=== PATIENT | male | born 1960 | race Caucasian/White ===

== ENCOUNTER 2017-11-13 19:57 | Emergency (ER) | payer OTHER, MEDICAID ==
[~2017-11-13] VITALS: Ht 142.2 cm; Wt 52.7 kg
--- NOTE | 2017-11-13 20:00 | NUR ---
Cristian fernandez in ED - 11/13/17 at 2027 by BASHIR PATIENT LEFT WITHOUT BEING SEEN BY DR. BRADY. NO FURTHER CARE PROVIDED FOR PATIENT.
[2017-11-13 20:10] VITALS: BP 124/81
--- NOTE | 2017-11-13 20:15 | NUR ---
PATIENT BIB WHEELCHAIR TO ER BED 1.
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
[2017-11-13 21:12] VITALS: BP 129/73
--- NOTE | 2017-11-13 21:12 | NUR ---
Patient discharged with v/s stable. Written and verbal after care instructions given and explained. Patient verbalized understanding. Wheel Chair Assisted with by caregiver. All questions addressed prior to discharge. Advised to follow up with PMD.
== END 2017-11-13 21:12 | disposition home or self-care (01) ==
LOC: MED 19:57
DX: S01.01XA Laceration without foreign body of scalp, initial encounter (principal); I10 Essential (primary) hypertension; Q90.9 Down syndrome, unspecified; E11.9 Type 2 diabetes mellitus without complications; K21.9 Gastro-esophageal reflux disease without esophagitis; F03.90 Unspecified dementia, unspecified severity, without behavioral disturbance, psychotic disturbance, mood disturbance, and anxiety; E78.5 Hyperlipidemia, unspecified; M19.90 Unspecified osteoarthritis, unspecified site; Z88.8 Allergy status to other drugs, medicaments and biological substances; W22.03XA Walked into furniture, initial encounter; Y93.89 Activity, other specified; Y92.89 Other specified places as the place of occurrence of the external cause; Y99.8 Other external cause status
CPT/HCPCS: 12001; 99283

== ENCOUNTER 2018-07-02 22:39 | Emergency (ER) | payer OTHER, MEDICAID ==
[~2018-07-02] VITALS: Ht 147.3 cm; Wt 59.0 kg
[2018-07-02 22:40] VITALS: BP 112/85
[2018-07-03 01:23] VITALS: BP 112/85
== END 2018-07-03 01:23 | disposition home or self-care (01) ==
LOC: MED 22:39
DX: M17.11 Unilateral primary osteoarthritis, right knee (principal); E11.9 Type 2 diabetes mellitus without complications; F03.90 Unspecified dementia, unspecified severity, without behavioral disturbance, psychotic disturbance, mood disturbance, and anxiety; K21.9 Gastro-esophageal reflux disease without esophagitis; I10 Essential (primary) hypertension; Q90.9 Down syndrome, unspecified; Z88.8 Allergy status to other drugs, medicaments and biological substances
CPT/HCPCS: 73562; 73590; 93971; 99284; Q0092

== ENCOUNTER 2019-08-22 10:03 | Emergency (ER) | payer OTHER, MEDICAID ==
[~2019-08-22] VITALS: Ht 144.8 cm; Wt 42.6 kg
[2019-08-22 10:17] VITALS: BP 106/60
[2019-08-22 12:06] VITALS: BP 106/60
== END 2019-08-22 12:06 | disposition home or self-care (01) ==
LOC: MED 10:03
DX: J18.9 Pneumonia, unspecified organism (principal); E11.9 Type 2 diabetes mellitus without complications; F03.90 Unspecified dementia, unspecified severity, without behavioral disturbance, psychotic disturbance, mood disturbance, and anxiety; K21.9 Gastro-esophageal reflux disease without esophagitis; I10 Essential (primary) hypertension; E07.9 Disorder of thyroid, unspecified
CPT/HCPCS: 71045; 87804; 99284; Q0092

== ENCOUNTER 2020-01-15 15:47 | Emergency (ER) | payer OTHER, MEDICAID ==
[~2020-01-15] VITALS: Ht 129.5 cm; Wt 47.6 kg
[2020-01-15 15:50] VITALS: BP 114/60
--- NOTE | 2020-01-15 16:00 | NUR ---
PT WHEELCHAIR ASSISTED TO BED 06
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
--- NOTE | 2020-01-15 16:20 | NUR ---
DR LOYOLA AT BEDSIDE EXAMINING PT
--- NOTE | 2020-01-15 16:37 | NUR ---
LACERATION CLOSED USING DERMABOND PLACED TO RT EYEBROW BY DR LOYOLA. PT TOLERATED WELL
[2020-01-15 16:43] VITALS: BP 114/60
--- NOTE | 2020-01-15 16:44 | NUR ---
Patient discharged with v/s stable. Written and verbal after care instructions given and explained. Patient verbalized understanding. Wheel Chair Assisted with to car. All questions addressed prior to discharge. Advised to follow up with PMD.
== END 2020-01-15 16:44 | disposition home or self-care (01) ==
LOC: MED 15:47
DX: S01.111A Laceration without foreign body of right eyelid and periocular area, initial encounter (principal); E11.9 Type 2 diabetes mellitus without complications; E07.89 Other specified disorders of thyroid; F79 Unspecified intellectual disabilities; F03.90 Unspecified dementia, unspecified severity, without behavioral disturbance, psychotic disturbance, mood disturbance, and anxiety; I10 Essential (primary) hypertension; K21.9 Gastro-esophageal reflux disease without esophagitis; W01.198A Fall on same level from slipping, tripping and stumbling with subsequent striking against other object, initial encounter; Y93.89 Activity, other specified; Y92.091 Bathroom in other non-institutional residence as the place of occurrence of the external cause; Y99.8 Other external cause status
CPT/HCPCS: 99282

== ENCOUNTER 2021-02-06 07:31 | Inpatient (IN) | payer OTHER, MEDICAID, SELFPAY ==
[~2021-02-06] VITALS: Ht 144.8 cm; Wt 53.1 kg
--- NOTE | 2021-02-06 07:32 | NUR ---
pt BIBA to bed 10 via gurney. ERMD at bedside evaluating pt.
--- NOTE | 2021-02-06 07:34 | NUR ---
Per Dr. Bowen at pt bedside ordered 0.4mg Narcan stat IVP. Given in left hand 20G. 2L NC applied per Md order.
[2021-02-06] MEDS ORDERED: NALOXONE 0.4 MG/ML VIAL ONE (07:35)
[2021-02-06 07:39] VITALS: BP 114/64
--- NOTE | 2021-02-06 07:46 | NUR ---
RT AT BEDSIDE
--- NOTE | 2021-02-06 08:13 | NUR ---
pt taken to ct via nadiya
--- NOTE | 2021-02-06 08:18 | NUR ---
60 Y/O M DAPHNE FROM [facility], PT THIS MORNING WAS HAVING C/O SOB, ALOC, SHALLOW RESPIRATIONS AND 02 DESTAT WITH 78% ON RA. PT WAS PUT ON NON REBREATHER @10L, NOW STAT AT 100%. PT NORMAL BASELINE, RESPONDS TO SPEECH AND PAIN, NON VERBAL. PT AT THIS TIME NOT RESPONSIVE TO PAINFUL STIMULI OR SPEECH. ACCU CHECK: 115. PMH: DOWN SYNDROME, HYPERTHYROID, DM ALLERGY: KENYON INHIBITORS
[2021-02-06 08:19] LABS: ALBUMIN 3.3 g/dL (3.4-5.0); ANION GAP 21.7 (8-16); CARBON DIOXIDE 21.8 mmol/L (21-32); CREATININE 2.3 mg/dL (0.6-1.3); POTASSIUM 4.5 mmol/L (3.5-5.1); TOTAL BILIRUBIN 0.2 mg/dL (0.0-1.0)
[2021-02-06 08:25] LABS: LIPASE 128 U/L (73-393)
[2021-02-06 08:41] LABS: BILIRUBIN,URINE NEGATIVE (NEGATIVE); BLOOD, URINE TRACE-I (NEGATIVE); COLOR,URINE YELLOW (YELLOW); NITRITE, URINE NEGATIVE (NEGATIVE); UGLUCOSE NEGATIVE (NEGATIVE)
[2021-02-06] MEDS ORDERED: PIPERACILLIN/TAZOBACTAM 3.375 GM in DEXTROSE 5% 50 ML IV ONE (09:00)
[2021-02-06] MEDS ORDERED: VANCOMYCIN PER PHARMACY MC PRN ×2 (09:00→22:10)
[2021-02-06] MEDS ORDERED: VANCOMYCIN 1GM/DEXT 5% PREMIX 200 ML IV ONE (09:00)
[2021-02-06] MEDS ORDERED: NACL 0.9% 1,000 ML IV ONE ×2 (09:00)
[2021-02-06] MEDS ORDERED: PIPERACILLIN/TAZOBACTAM 3.375 GM VIAL IV ONE (09:08)
[2021-02-06 09:10] LABS: LEUKOCYTE ESTERASE ,URINE 1+ (NEGATIVE); RBC,URINE 0-5 /HPF (0-5)
--- NOTE | 2021-02-06 09:10 | NUR ---
SPOKE WITH FRANCES CID FROM FACILITY AND GAVE UPDATE ON PT STATUS
[2021-02-06 09:12] LABS: APPEARANCE,URINE SLIGHTLY HAZY (CLEAR); URINE AMORPHOUS URATE 1+ /HPF (None Seen)
[2021-02-06] MEDS ORDERED: VANCOMYCIN 1,000 MG VIAL ONE (09:13)
[2021-02-06 09:15] LABS: BARBITURATE, URINE NEGATIVE ng/ml (NEG <=200); BENZODIAZEPINE, URINE NEGATIVE ng/mL (NEG <=200); CANNABINOID, URINE NEGATIVE ng/mL (NEG <=50); COCAINE, URINE NEGATIVE ng/mL (NEG <=300); OPIATE, URINE NEGATIVE ng/mL (NEG <=2000); PHENCYCLIDINE SCREEN,URINE NEGATIVE ng/mL (NEG <=25)
--- NOTE | 2021-02-06 09:32 | NUR ---
MADE AWARE OF PETECHIAE APPERARING ON PT HEAD, CHEST, AND LE. DR. ESPARZA BEDSIDE WITH DR. SCHNEIDER.
[2021-02-06] MEDS ORDERED: ONDANSETRON 4 MG/2 ML VIAL IVP PRN ×2 (09:35→21:50)
[2021-02-06] MEDS ORDERED: LORazepam 2 MG/ML VIAL IVP PRN (09:35)
--- NOTE | 2021-02-06 09:47 | NUR ---
KEN HAZMAT TRUCK DRIVER FROM FACILITY STOPPED BY TO CHECK ON PATIENT. WENT BEDSIDE WITH KEN AND PROVIDED UPDATE ON PATIENT. KEN IS GOING TO CONTACT FACILITY AND HAVE MEDICATION RECORDS FAXED OVER TO HOSPITAL ED
[2021-02-06] MEDS ORDERED: KETAMINE 10 MG/ML UD SYR **ER IVP ONE (10:00)
[2021-02-06] MEDS: DEXT 5% / NACL 0.45% 1,000 ML IV SCH ×3 (10:15→21:50)
--- NOTE | 2021-02-06 10:17 | NUR ---
Per Ami, we need to call addiction social worker to obtain consent for conscious sedation for spinal tap. Called pt sister Donna [phone] for verbal consent. Per Donna wanting to give consent only after speaking with Dr. Bowen regarding pt updates and care.
[2021-02-06] MEDS ORDERED: cefTRIAXone 2,000 MG in DEXTROSE 5% 100 ML IV ONE (10:30)
--- NOTE | 2021-02-06 10:38 | NUR ---
CONSTENT FOR LUMBAR PUNTURE AND CONCIOUS SEDATION OBTAINED OVER PHONE FROM SISTER ED. MADE AWARE AND SIGNED CONSENT FORM
[2021-02-06] MEDS ORDERED: cefTRIAXone 2,000 MG VIAL ONE (10:48)
--- NOTE | 2021-02-06 11:04 | NUR ---
STARTED CONSIOUS SEDATION FOR MD. RN BEDSIDE MONITORING PATIENT. VS STABLE. MEDICATION CHARTED
--- NOTE | 2021-02-06 11:05 | NUR ---
WAS AT BEDSIDE FOR CONS SEDATION FOR PROCEDURE WITH MD AND RNS. PATIENT MAINTAINED SATURATIONS AND END TIDAL WAS MAINTAINED THROUGHOUT PROCEDURE. PATIENT DID WELL AND DIDNT NEED ANY FURTHER INTERVENTIONS BY RT. BVM AND SET UP WERE PLACED AT BEDSIDE IN CASE NEEDED WHICH WAS NOT. PATIENT STAYED ON 2 LITERS THROUGHOUT PROCEDURE BY MD.
[2021-02-06 11:27] LABS: PROTHROMBIN TIME 10.7 secs (10.8-13.4)
[2021-02-06] MEDS ORDERED: AMPICILLIN 2,000 MG in NACL 0.9% 100 ML IV ONE (11:40)
--- NOTE | 2021-02-06 12:00 | NUR ---
GISELA DAUGHERTY, FROM PATIENT FACILITY BEDSIDE WITH PATIENT. PATIENT CURRENTLY RESTING IN BED. VITALS STABLE. WILL CONTUINE TO MONITOR
[2021-02-06 12:58] LABS: BASOPHILS % (AUTO) 0.6 % (0.0-2.0); EOSINOPHILS # (AUTO) 0.1 K/uL (0-0.4); EOSINOPHILS % (AUTO) 1.6 % (0.0-4.0); HEMATOCRIT 40.2 % (36-52); HEMOGLOBIN 13.1 g/dL (12.0-18.0); LYMPHOCYTES # (AUTO) 2.7 K/uL (2.0-11.5); LYMPHOCYTES % (AUTO) 36.1 % (20.5-51.1); MEAN CORPUSCULAR HEMOGLOBIN 33 pg (27-31); MEAN CORPUSCULAR HGB CONC 33 g/dL (33-37); MONOCYTES # (AUTO) 0.5 K/uL (0.8-1.0); MONOCYTES % (AUTO) 6.3 % (1.7-9.3); NEUTROPHILS # (AUTO) 4.1 K/uL (1.8-7.7); NEUTROPHILS % (AUTO) 55.4 % (42.2-75.2); PLATELET COUNT (AUTO) 283 K/uL (140-450); RED BLOOD CELL COUNT(AUTO) 3.94 MIL/uL (4.20-6.10); RED CELL DISTRIBUTION WIDTH 15.2 % (11.6-13.7); WHITE BLOOD COUNT (AUTO) 7.5 K/uL (4.8-10.8)
--- NOTE | 2021-02-06 13:19 | NUR ---
PT CURRENTLY ASLEEP IN BED. VS STABLE AND WILL CONTUINE TO MONITOR
--- NOTE | 2021-02-06 14:15 | NUR ---
CHECKED ON PT. GUICHO DAUGHERTY FROM FACILITY BEDSIDE WITH PT. PATIENT STABLE, WILL CONTUINE TO MONITOR
--- NOTE | 2021-02-06 14:45 | NUR ---
CHECKED ON PT. PT CURRENTLY SLEEPING IN BED RIGHT NOW. VITALS STABLE, WILL CONTUINE TO MONITOR
--- NOTE | 2021-02-06 14:52 | NUR ---
PT GOES BY JIMMY
--- NOTE | 2021-02-06 16:15 | NUR ---
PT ARRIVED FROM ER IN [facility], PT TRANSFERRED TO BED WITH FULL ASSIST, REPORT RECEIVED FROM DIRECTOR OF QUANTITATIVE RESEARCH, PT PLACED ON CARDIAC MONTIOR, INITIAL ASSESSMENT DONE, MRSA SWAB DONE, PT DROWSY AROUSES TO LIGHT PAIN, RESP EVEN UNLABORED ON 2L NC O2, SKIN WARM DRY COLOR WNL, CAP REFILL < 3 SECONDS, PETECHIEAL RASH NOTED TO FACE AND CHEST, OTHERWISE INTACT, IV TO R AC AND LEFT FA, SITES WNL, ABD SOFT NON DISTENDED, FALL RISK PRECAUTIONS INITIATED, ALL SAFETY MEASURES IN PLACE, ORDERS AND PLAN OF CARE REVIEWED
[2021-02-06 16:30] VITALS: BP 143/88
--- NOTE | 2021-02-06 16:37 | NUR ---
Patient will be admitted to care of DR SÁNCHEZ ESPARZA. Admited to TELE. Will go to room 121A. Belongings list completed. Report to WILLOW GRANDE.
--- NOTE | 2021-02-06 16:57 | NUR ---
PHONE CALL MADE TO SISTER ED, NOTIFIED OF ADMISSION. ADMISSION QUESTIONS OBTAINED.
--- NOTE | 2021-02-06 17:12 | NUR ---
MRSA SWAB WALKED TO LAB
[2021-02-06] MEDS: PIPERACILLIN/TAZOBACTAM 2.25 GM in DEXTROSE 5% 50 ML IV SCH (18:03)
--- NOTE | 2021-02-06 18:16 | NUR ---
ROCEPHIN STARTED IVPB PER ORDER, PT SLEEPING IN NO ACUTE DISTRESS
[2021-02-06] MEDS ORDERED: OMEP20EC11 PO (18:49)
[2021-02-06] MEDS ORDERED: MELA5SGL PO (18:49)
[2021-02-06] MEDS ORDERED: DONE10TA10 PO (18:49)
[2021-02-06] MEDS ORDERED: SYN.05 PO (18:49)
[2021-02-06] MEDS ORDERED: DIT5 PO (18:49)
[2021-02-06] MEDS ORDERED: METF500T PO (18:49)
[2021-02-06] MEDS ORDERED: SIMV-30 PO (18:49)
[2021-02-06] MEDS ORDERED: FER300L GT/PO (18:49)
[2021-02-06] MEDS ORDERED: QUET100T PO (18:49)
[2021-02-06] MEDS ORDERED: METO-485 PO (18:49)
[2021-02-06] MEDS ORDERED: MAGN400S60 PO (18:50)
[2021-02-06] MEDS ORDERED: INSULIN LISPRO SLIDING SCALE 100 UNITS/ML VIAL SUBQ PRN (18:55)
[2021-02-06] MEDS ORDERED: DEXTROSE 50% 50 ML SYR IVP PRN (18:55)
--- NOTE | 2021-02-06 18:59 | NUR ---
BEDSIDE GLUCOSE 115
[2021-02-06] MEDS: BLOOD GLUCOSE MONITORING 1 DEV DEV FS SCH (19:00)
--- NOTE | 2021-02-06 19:27 | NUR ---
DR LUNA AT BEDSIDE.
--- NOTE | 2021-02-06 19:28 | NUR ---
BEDSIDE REPORT GIVEN TO MACHINE ADJUSTER NURSE GAGE.
--- NOTE | 2021-02-06 19:30 | NUR ---
RECEIVED REPORT FROM HARJINDER RN DAYSHIFT NURSE AT BEDSIDE FOR CONTINUITY OF CARE, PT IN STABLE CONDITION. PT IS AOX1 HE IS LETHARGIC BUT AROUSABLE TO NAME AND LIGHT SHAKING. PT OPEN EYES SPONTANEOUSLY. HOB UP 35%. SKIN IS INTACT,HOWEVER PT NOTED WITH PETECHIA RASH ON FACE AND CHEST .HE HAS A LFA 20G RUNNING D5 1/2 NORMAL SALINE AT 100 AND A RAC 20G WHICH IS SALINE LOCKED. PT IS NPO SWALLOW EVALUATION IS PENDING. ALL FALLS PRECAUTIONS IN PLACE.
[2021-02-06 20:00] VITALS: BP 146/78
--- NOTE | 2021-02-06 20:00 | NUR ---
PT IN BED RESTING WITH EYES CLOSED, HE IS AROUSABLE WITH LIGHT SHAKING. IV FLUIDS OF D5 1/2 NS CONTINUES TO RUN AT 100MLS/HR. V/S FOLLOWS: T 97.1 P 68 R 18 B/P 166/78 02 100% WITH 2 LITERS VIA N/C. ALL FALLS PRECAUTIONS IN PLACE. Addendum: 02/07/21 at 0145 by Faustina Flores RN SBP IS 146 NOT 166
[2021-02-06] MEDS ORDERED: PIPERACILLIN/TAZOBACTAM 3.375 GM in DEXTROSE 5% 50 ML IV SCH (21:00)
--- NOTE | 2021-02-06 21:00 | NUR ---
PT WAS TURNED, CHANGED AND REPOSITIONED IN BED. D5 1/2 NS RUNNING AT 100MLS/HR ORDERED. ALL FALLS PRECAUTIONS IN PLACE.
--- NOTE | 2021-02-06 22:30 | NUR ---
14 SPANISH GUILLORY CATHETER PLACED, DRAINING LIGHT CHERYL URINE. PT IS STRICT I AND O. IV FLUIDS RUNNING ORDERED. HOB UP 35% N/C IN PLACE AND CONTINUES AT 2 LITERS. ALL ORDERED PRECAUTIONS IN PLACE.
[2021-02-07] VITALS: BP 149/79
--- NOTE | 2021-02-07 00:10 | NUR ---
PT WAS TURNED AND REPOSITIONED IN BED N/C CONTINUES AT 2 LITERS, IV SITES INTACT AND D5 1/2 NORMAL SALINE RUNNING AT 100MLS/HR ORDERED. V/S FOLLOWS: T 97.1 P 53 R 16 B/P 149/79 02 99% WITH 2 LITERS VIA N/C. ALL FALLS PRECAUTIONS IN PLACE.
[2021-02-07] MEDS: BLOOD GLUCOSE MONITORING 1 DEV DEV FS SCH ×5 (00:59→23:23)
[2021-02-07] MEDS: PIPERACILLIN/TAZOBACTAM 2.25 GM in DEXTROSE 5% 50 ML IV SCH ×5 (01:00→23:23)
[2021-02-07 04:00] VITALS: BP 159/93
--- NOTE | 2021-02-07 04:00 | NUR ---
PT TURNED AND REPOSITIONED IN BED. GUILLORY CATHETER IN PLACE DRAINING BLOOD TINGED URINE. PT HS NO S/S OF PAIN OR DISTRESS NOTED. IV FLUID RUNNING D5 1/2 NS ORDERED. ALL FALLS AND ASPIRATION PRECAUTIONS IN PLACE.
--- NOTE | 2021-02-07 06:00 | NUR ---
FINGERSTICK IS 129, NO COVERAGE NEEDED.
[2021-02-07] MEDS: DEXT 5% / NACL 0.45% 1,000 ML IV SCH ×2 (06:44→17:44)
[2021-02-07 07:00] LABS: BASOPHILS # (AUTO) 0.1 K/uL (0.00-0.22); BASOPHILS % (AUTO) 0.6 % (0.0-2.0); EOSINOPHILS # (AUTO) 0.1 K/uL (0-0.4); EOSINOPHILS % (AUTO) 1.4 % (0.0-4.0); HEMATOCRIT 38.2 % (36-52); HEMOGLOBIN 12.9 g/dL (12.0-18.0); LYMPHOCYTES # (AUTO) 1.8 K/uL (2.0-11.5); LYMPHOCYTES % (AUTO) 21.4 % (20.5-51.1); MEAN CORPUSCULAR HEMOGLOBIN 33 pg (27-31); MEAN CORPUSCULAR HGB CONC 34 g/dL (33-37); MEAN CORPUSCULAR VOLUME 98.5 fL (80-94); MONOCYTES # (AUTO) 0.5 K/uL (0.8-1.0); MONOCYTES % (AUTO) 5.7 % (1.7-9.3); NEUTROPHILS # (AUTO) 5.9 K/uL (1.8-7.7); NEUTROPHILS % (AUTO) 70.9 % (42.2-75.2); PLATELET COUNT (AUTO) 246 K/uL (140-450); RED BLOOD CELL COUNT(AUTO) 3.87 MIL/uL (4.20-6.10); RED CELL DISTRIBUTION WIDTH 14.9 % (11.6-13.7); WHITE BLOOD COUNT (AUTO) 8.4 K/uL (4.8-10.8)
--- NOTE | 2021-02-07 07:09 | NUR ---
PATIENT HAS BEEN SCREENED AND CATEGORIZED HIGH NUTRITION RISK. PATIENT WILL BE SEEN WITHIN 1-2 DAYS OF ADMISSION. 02/07/21-02/08/21 TRACI SAHU MS, RDN
[2021-02-07 07:12] LABS: ANION GAP 12.5 (8-16); CARBON DIOXIDE 24.4 mmol/L (21-32); CREATININE 1.7 mg/dL (0.6-1.3); POTASSIUM 3.9 mmol/L (3.5-5.1)
--- NOTE | 2021-02-07 07:25 | NUR ---
PATIENT RECEIVED FROM QA CONSULTANT RN. PT RESTING IN BED. NO S/SX OF DISTRESS. CALL LIGHT WITHIN REACH NO SAFETY MEASURES ARE IN PLACE. Addendum: 02/07/21 at 0756 by Jennifer Cerrato RN RN WRONG PT.
--- NOTE | 2021-02-07 07:30 | NUR ---
RECEIVED REPORT FROM LAND ACQUISITION ANALYST NURSE. PT IN BED HOB ELEVATED, AOX1, DROWSY, AROUSABLE TO NAME AND LIGHT SHAKING. OPENS EYES SPONTANEOUSLY AND TRACKS. SKIN IS INTACT, WITH PETECHIA RASH ON FACE AND CHEST. WITH LFA 20G RUNNING D5 1/2 NORMAL SALINE AT 100CC/HR AND A RAC 20G .SALINE LOCKED. NPO AT THIS TIME WITH SWALLOW EVALUATION PENDING. SAFETY AND FALLS PRECAUTIONS IN PLACE. CALL LIGHT WITHIN REACH. WILL CONTINUE TO MONITOR
[2021-02-07 07:37] LABS: MAGNESIUM 1.8 mg/dL (1.8-2.4); PHOSPHORUS 3.4 mg/dL (2.5-4.9)
[2021-02-07 08:00] VITALS: BP 150/71
[2021-02-07 09:06] LABS: LACTATE DEHYDROGENASE 170 IU/L (121-224)
--- NOTE | 2021-02-07 09:47 | NUR ---
(02/07/21) RD INITIAL ASSESSMENT COMPLETED PLEASE REFER TO NUTRITION ASSESSMENT UNDER CARE ACTIVITY FOR ESTIMATED NUTRITIONAL NEEDS. RD RECOMMENDATIONS: IF PT PASSES SWALLOW EVAL, CONSIDER CCHO 60 GM DIET IN CONSISTENCY/TEXTURES PER COMPOSITE LAMINATOR RECOMMENDATIONS. IF PT DOES NOT PASS SWALLOW EVAL, CONSIDER TF: VITAL AF AT 60 ML/HR X 24 HOURS. THIS PROVIDES 1440 ML TOTAL VOLUME, 1728 KCAL, 108 GM PROTEIN, 1168 ML TOTAL FREE WATER & FWF OF 180 ML Q6H TO PROVIDE 720 ML FREE WATER. WHICH MEETS 91% EST KCAL NEEDS AND >100% EST PROTEIN NEEDS. 2. CONSULT RDN PRN. 3. RD WILL F/U 2-3 DAYS; HIGH RISK. ?TRACI SAHU, MS, RDN
[2021-02-07] MEDS ORDERED: VANCOMYCIN 1,000 MG in DEXTROSE 5% 250 ML IV SCH (10:00)
[2021-02-07] MEDS: PANTOPRAZOLE 40 MG INJ VIAL IVP SCH (10:21)
--- NOTE | 2021-02-07 11:10 | NUR ---
PT ASLEEP IN BED WITH SISTER AT BEDSIDE. NO APPARENT DISTRESS
[2021-02-07 12:00] VITALS: BP 143/67
--- NOTE | 2021-02-07 13:00 | NUR ---
PT AWAKE IN BED. NO APPARENT DISTRESS, FLACC 0, WITH EPISODES OF SCREAMING, WOULD STOP WHEN COMFORTED
--- NOTE | 2021-02-07 15:00 | NUR ---
PT ASLEEP IN BED. NO APPARENT DISTRESS, FLACC 0
[2021-02-07 16:00] VITALS: BP 117/73
--- NOTE | 2021-02-07 17:00 | NUR ---
BEDSIDE SWALLOW EVAL DONE. PT ABLE TO SWALLOW APPLE SAUCE WIT DIFFICULTY SWALLOWING THIN LIQUIDS. DR MENDOZA NOTIFIED. PRDERED PUREE WITH THICKENED LIQUIDS
[2021-02-07] MEDS: NACL 0.9% 1,000 ML IV SCH (19:03)
--- NOTE | 2021-02-07 19:35 | NUR ---
RECIEVED BEDSIDE ENDORSMENT FROM DAY SHIFT RN, PT A&OX1, REACTS TO VOICE AND TOUCH, SR ON MONITOR, ON ROOM AIR, VSS, RAC 20 G PIV SALINE LOCKED, LFA 20 G PIV INFUSING NS @ 50 MLS/HR, ABD SOFT AND NON TENDER TO TOUCH, FC IN PLACE DRAINING VIA GRAVITY, SKIN WARM DRY AND INTACT, NO SIGNS OF ACUTE DISTRESS, SAFETY MEASURES IN PLACE, WILL CONTINUE WITH CURRENT POC
[2021-02-07 20:00] VITALS: BP 124/84
--- NOTE | 2021-02-07 20:45 | NUR ---
ADMINISTERED 2100H MEDICATIONS PER MD ORDERS
--- NOTE | 2021-02-07 23:24 | NUR ---
ADMINISTERED 0000H MEDICATION PER MD ORDERS, BLOOD GLUCOSE 111
[2021-02-08] VITALS: BP 131/69
[2021-02-08] MEDS: LORazepam 2 MG/ML VIAL IVP PRN ×2 (01:08→22:41)
--- NOTE | 2021-02-08 02:48 | NUR ---
PT SLEEPING COMFORTABLY W/ NO DISTRESS NOTED WILL CONTINUE TO MONITOR
[2021-02-08 04:00] VITALS: BP 142/77
[2021-02-08] MEDS: PIPERACILLIN/TAZOBACTAM 2.25 GM in DEXTROSE 5% 50 ML IV SCH ×4 (05:03→23:07)
[2021-02-08] MEDS: BLOOD GLUCOSE MONITORING 1 DEV DEV FS SCH ×4 (05:09→23:07)
--- NOTE | 2021-02-08 05:09 | NUR ---
ADMINISTERED 0600H MEDICATION PER MD ORDERS, BLOOD GLUCOSE 128
[2021-02-08 06:40] LABS: BASOPHILS # (AUTO) 0.1 K/uL (0.00-0.22); EOSINOPHILS # (AUTO) 0.2 K/uL (0-0.4); EOSINOPHILS % (AUTO) 2.3 % (0.0-4.0); HEMATOCRIT 39.7 % (36-52); HEMOGLOBIN 13.2 g/dL (12.0-18.0); LYMPHOCYTES # (AUTO) 1.6 K/uL (2.0-11.5); LYMPHOCYTES % (AUTO) 23.6 % (20.5-51.1); MEAN CORPUSCULAR HEMOGLOBIN 33 pg (27-31); MEAN CORPUSCULAR HGB CONC 33 g/dL (33-37); MEAN CORPUSCULAR VOLUME 99.3 fL (80-94); MONOCYTES # (AUTO) 0.5 K/uL (0.8-1.0); MONOCYTES % (AUTO) 7.1 % (1.7-9.3); NEUTROPHILS # (AUTO) 4.4 K/uL (1.8-7.7); PLATELET COUNT (AUTO) 244 K/uL (140-450); RED CELL DISTRIBUTION WIDTH 14.8 % (11.6-13.7); WHITE BLOOD COUNT (AUTO) 6.7 K/uL (4.8-10.8)
[2021-02-08 07:10] LABS: ANION GAP 11.5 (8-16); CREATININE 1.8 mg/dL (0.6-1.3); POTASSIUM 3.5 mmol/L (3.5-5.1)
--- NOTE | 2021-02-08 07:20 | NUR ---
ENDORSED TO DAY SHIFT RN FOR CONTINUIYT OF CARE
--- NOTE | 2021-02-08 07:21 | NUR ---
RECEIVED REPORT FROM DINING ROOM ATTENDANT NURSE. PT IN BED HOB ELEVATED, AOX1, ASLEEP, AROUSABLE TO NAME AND LIGHT SHAKING. OPENS EYES SPONTANEOUSLY AND TRACKS. SKIN IS INTACT, WITH PETECHIA RASH ON FACE AND CHEST. WITH LFA 20G RUNNING NORMAL SALINE AT 50CC/HR AND A RAC 20G SALINE LOCKED. ON PUREE DIET WITH SWALLOW EVALUATION PENDING. SAFETY AND FALLS PRECAUTIONS IN PLACE. CALL LIGHT WITHIN REACH. WILL CONTINUE TO MONITOR
[2021-02-08 08:00] VITALS: BP 158/80
--- NOTE | 2021-02-08 08:50 | NUR ---
DUE MEDS GIVEN
[2021-02-08] MEDS: PANTOPRAZOLE 40 MG INJ VIAL IVP SCH (08:54)
--- NOTE | 2021-02-08 09:15 | NUR ---
PT RESTING IN BED. NO APPARENT DISTRESS, FLACC 0
--- NOTE | 2021-02-08 11:30 | NUR ---
PT AWAKE IN BED. NO APPARENT DISTRESS, FLACC 0, WITH EPISODES OF SCREAMING, WOULD STOP WHEN COMFORTED
[2021-02-08 12:00] VITALS: BP 138/89
--- NOTE | 2021-02-08 13:00 | NUR ---
FED PT LUNCH. TOLERATED PUREE DIET WELL, ATE 50%
[2021-02-08] MEDS: NACL 0.9% 1,000 ML IV SCH (14:41)
[2021-02-08 16:00] VITALS: BP 98/86
[2021-02-08] MEDS ORDERED: VANCOMYCIN 1,000 MG in DEXTROSE 5% 250 ML IV SCH (16:00)
--- NOTE | 2021-02-08 16:18 | NUR ---
PT AWAKE IN BED. NO APPARENT DISTRESS, FLACC 0, NO SOB
--- NOTE | 2021-02-08 18:39 | NUR ---
PT AWAKE IN BED. NO APPARENT DISTRESS, RESPIRATIONS ARE EVEN AND UNLABORED
--- NOTE | 2021-02-08 19:20 | NUR ---
RECIEVED BEDSIDE ENDORSMENT FROM DAY SHIFT RN, PT A&OX1, REACTS TO VOICE AND TOUCH, SR ON MONITOR, ON ROOM AIR, VSS, RAC 20 G PIV INFUSING NS @ 50 MLS/HR, ABD SOFT AND NON TENDER TO TOUCH, FC IN PLACE DRAINING VIA GRAVITY, SKIN WARM DRY AND INTACT, NO SIGNS OF ACUTE DISTRESS, SAFETY MEASURES IN PLACE, WILL CONTINUE WITH CURRENT POC
[2021-02-08 20:00] VITALS: BP 123/74
--- NOTE | 2021-02-08 20:59 | NUR ---
ADMINISTERED 2100H MEDICATION PER MD ORDERS
--- NOTE | 2021-02-08 23:07 | NUR ---
ADMINISTERED 0000H MEDICATIONS PER MD ORDERS, BLOOD GLUCOSE 128, NO COVERAGE NEEDED
[2021-02-09] VITALS: BP 132/69
--- NOTE | 2021-02-09 03:02 | NUR ---
REPOSITIONED PT, AM CARE PROVIDED, LINEN CHANGE, NO SIGNS OF ACUTE DISTRESS
[2021-02-09 04:00] VITALS: BP 121/74
[2021-02-09] MEDS: BLOOD GLUCOSE MONITORING 1 DEV DEV FS SCH ×3 (05:01→18:17)
[2021-02-09] MEDS: PIPERACILLIN/TAZOBACTAM 2.25 GM in DEXTROSE 5% 50 ML IV SCH ×3 (05:01→18:15)
--- NOTE | 2021-02-09 05:02 | NUR ---
ADMINISTERED 0600H MEDICATIONS PER MD ORDERS, BLOOG GLUCOSE 133, NO COVERAGE NEEDED
[2021-02-09 05:17] LABS: BASOPHILS # (AUTO) 0.1 K/uL (0.00-0.22); EOSINOPHILS # (AUTO) 0.3 K/uL (0-0.4); EOSINOPHILS % (AUTO) 2.3 % (0.0-4.0); HEMATOCRIT 38.3 % (36-52); HEMOGLOBIN 12.7 g/dL (12.0-18.0); LYMPHOCYTES # (AUTO) 2.1 K/uL (2.0-11.5); LYMPHOCYTES % (AUTO) 18.3 % (20.5-51.1); MEAN CORPUSCULAR HEMOGLOBIN 33 pg (27-31); MEAN CORPUSCULAR HGB CONC 33 g/dL (33-37); MEAN CORPUSCULAR VOLUME 99.2 fL (80-94); MONOCYTES # (AUTO) 0.8 K/uL (0.8-1.0); MONOCYTES % (AUTO) 6.6 % (1.7-9.3); NEUTROPHILS # (AUTO) 8.2 K/uL (1.8-7.7); NEUTROPHILS % (AUTO) 71.8 % (42.2-75.2); PLATELET COUNT (AUTO) 244 K/uL (140-450); RED BLOOD CELL COUNT(AUTO) 3.87 MIL/uL (4.20-6.10); RED CELL DISTRIBUTION WIDTH 14.7 % (11.6-13.7); WHITE BLOOD COUNT (AUTO) 11.4 K/uL (4.8-10.8)
[2021-02-09 05:31] LABS: ANION GAP 14.8 (8-16); CARBON DIOXIDE 23.7 mmol/L (21-32); POTASSIUM 3.5 mmol/L (3.5-5.1)
--- NOTE | 2021-02-09 07:36 | NUR ---
ENDORSED TO DAY SHIFT RN FOR CONTINUITY OF CARE
--- NOTE | 2021-02-09 07:36 | NUR ---
RECEIVED REPORT FROM CHIMNEY BUILDER BRICK RN FOR CONTINUITY OF CARE. PATIENT ASLEEP IN BED. VISIBLE CHEST RISE AND FALL ON RA. IV TO RIGHT AC 20G INFUSING IVF NS@ 50ML/HR. GUILLORY CATHETER IN PLACE WITH BLOODY URINE. PATIENT IS NOT ALERT, NOT ABLE TO MAKE NEEDS KNOWN. SAFETY MEASURES IN PLACE, WILL CONTINUE TO MONITOR.
[2021-02-09 08:00] VITALS: BP 169/82
[2021-02-09] MEDS: PANTOPRAZOLE 40 MG INJ VIAL IVP SCH (09:15)
--- NOTE | 2021-02-09 09:16 | NUR ---
SCHEDULED MEDICATIONS GIVEN, EDUCATION PROVIDED. PATIENT IS NOT ALERT OR ORIENTED. BLOODY IN THE GUILLORY CATHETER NOTICED.
[2021-02-09] MEDS ORDERED: amLODIPine 5 MG TAB PO SCH (10:00)
--- NOTE | 2021-02-09 10:38 | NUR ---
PT WAS SEEN FOR DYSPHAGIA. PT WAS ABLE TO SAFELY SWALLOW PUREE DIET WITH HONEY THICK LIQUID WITHOUT S/S OF APSIRATION. MILD COUGH FOR NECTAR THICK LIQUID. RECOMMENDATION PUREE DIET WITH HONEY THICK LIQUID
[2021-02-09 12:00] VITALS: BP 108/75
[2021-02-09 16:00] VITALS: BP 155/72
[2021-02-09] MEDS: NACL 0.9% 1,000 ML IV SCH (17:11)
--- NOTE | 2021-02-09 17:25 | NUR ---
IRRIGATED THE GUILLORY CATHETER PER DR. VICTORIA DUE TO BLOODY URINE. PATIENT TOLERATED WELL. WILL CONTINUE TO MONITOR.
--- NOTE | 2021-02-09 19:35 | NUR ---
ENDORSED PATIENT TO ENTERER RN FOR CONTINUITY OF CARE. PATIENT IN STABLE CONDITION.
--- NOTE | 2021-02-09 19:36 | NUR ---
RECEIVED REPORT FROM AM SHIFT NURSE. PT IN BED AWAKE AND RESTING. PT KNOWN TO BE CONFUSED. FLACC 0. RESPIRATIONS EVEN AND UNLABORED TO ROOM AIR. PT NOT IN DISTRESS. ABDOMEN IS SOFT AND NON-TENDER, ACTIVE BOWEL SOUNDS NOTED. SKIN IS WARM AND DRY. PT WITH MINIMAL RASH ON FACE AND CHEST. PT WITH GUILLORY CATHETER IN PLACE DRAINING WELL TO BLOODY URINE. PT WITH G20 IV ACCESS ON RIGHT AC PATENT AND INTACT, IVF INFUSING WELL. PT KEPT COMFORTABLE, SAFETY MEASURES IN PLACE. WILL CONTINUE TO MONITOR.
[2021-02-09 20:00] VITALS: BP 151/86
--- NOTE | 2021-02-09 20:05 | NUR ---
VS STABLE. SCHEDULED MEDS GIVEN ORDERED. PT TURNED AND REPOSITIONED COMFORTABLY. PT NOT IN DISTRESS. FLACC 0. IVF INFUSING WELL. SAFETY MEASURES IN PLACE. WILL CONTINUE TO MONITOR.
--- NOTE | 2021-02-09 22:05 | NUR ---
PERINEAL CARE DONE. PT HAD A BOWEL MOVEMENT. PT TURNED AND REPOSITIONED. WILL CONTINUE TO MONITOR.
--- NOTE | 2021-02-09 23:15 | NUR ---
GUILLORY CATHETER IRRIGATED. NO RESISTANCE, TINY CLOTS NOTED. WILL CONTINUE TO MONITOR.
[2021-02-10] MEDS: BLOOD GLUCOSE MONITORING 1 DEV DEV FS SCH ×4 (00:13→18:11)
[2021-02-10] MEDS: PIPERACILLIN/TAZOBACTAM 2.25 GM in DEXTROSE 5% 50 ML IV SCH ×5 (00:14→23:24)
--- NOTE | 2021-02-10 00:14 | NUR ---
BLOOD SUGAR 102. SCHEDULED MEDICATION GIVEN ORDERED. FLACC 0. WILL CONTINUE TO MONITOR.
--- NOTE | 2021-02-10 02:04 | NUR ---
PT ASLEEP. VISIBLE CHEST RISE AND FALL NOTED. NO S/SX OF DISTRESS OR DISCOMFORT NOTED. PT KEPT COMFORTABLE. WILL CONTINUE TO MONITOR.
[2021-02-10 04:00] VITALS: BP 133/86
--- NOTE | 2021-02-10 04:18 | NUR ---
VS STABLE. PT NOT IN DISTRESS. PERINEAL CARE, CATHETER CARE, SKIN CARE DONE. PT TURNED AND REPOSITIONED. PT KEPT SAFE AND COMFORTABLE. WILL CONTINUE TO MONITOR.
[2021-02-10] MEDS: NACL 0.9% 1,000 ML IV SCH ×2 (06:21→17:47)
--- NOTE | 2021-02-10 06:35 | NUR ---
BLOOD SUGAR 137. NO INSULIN COVERAGE NEEDED
--- NOTE | 2021-02-10 07:05 | NUR ---
REPORT GIVEN TO AM SHIFT NURSE FOR CONTINUITY OF CARE
--- NOTE | 2021-02-10 07:07 | NUR ---
Received report from night nurse. Per night nurse pt is on Sozyn for UTI. Pt has a becerril catheter that has blood urine. Iriigation BID. Renal ultrasound showed no obstruction. Head CT was negative but did show atherosclerosis. Pt is on a thick puree diet. LBM was today. Pt has a a 20g IV on LAC running at 50ml/hr NS. Pt was sleeping. Call light is within reach. safety precautions in place. Will continue plan of care.
--- NOTE | 2021-02-10 08:00 | NUR ---
IRRIGATED GUILLORY CATHETER PER MD ORDER. IRRIGATED WITH 100CC'S. IRRIGATIONS SHOWED SMALL AMOUNTS OF BLOOD CLOTS. PT TOLERATED PROCEDURE WELL. WILL CONTINUE TO MONITOR.
[2021-02-10] MEDS: PANTOPRAZOLE 40 MG INJ VIAL IVP SCH (09:05)
--- NOTE | 2021-02-10 09:05 | NUR ---
Administered scheduled medications per MD order. Call light is within reach. Safety precautions in place. Will continue to monitor.
--- NOTE | 2021-02-10 12:13 | NUR ---
MEDICATION DUE GIVEN ZOSYN 2.25 GM INFUSING WELL. PT IS EATING.
[2021-02-10 12:51] LABS: BASOPHILS # (AUTO) 0.1 K/uL (0.00-0.22); BASOPHILS % (AUTO) 0.5 % (0.0-2.0); EOSINOPHILS # (AUTO) 0.1 K/uL (0-0.4); HEMATOCRIT 35.8 % (36-52); HEMOGLOBIN 11.9 g/dL (12.0-18.0); LYMPHOCYTES # (AUTO) 1.8 K/uL (2.0-11.5); LYMPHOCYTES % (AUTO) 16.1 % (20.5-51.1); MEAN CORPUSCULAR HEMOGLOBIN 33 pg (27-31); MEAN CORPUSCULAR HGB CONC 33 g/dL (33-37); MEAN CORPUSCULAR VOLUME 98.1 fL (80-94); MONOCYTES # (AUTO) 0.5 K/uL (0.8-1.0); NEUTROPHILS % (AUTO) 78.4 % (42.2-75.2); PLATELET COUNT (AUTO) 227 K/uL (140-450); RED BLOOD CELL COUNT(AUTO) 3.66 MIL/uL (4.20-6.10); RED CELL DISTRIBUTION WIDTH 14.6 % (11.6-13.7); WHITE BLOOD COUNT (AUTO) 11.5 K/uL (4.8-10.8)
[2021-02-10 13:15] LABS: ANION GAP 13.6 (8-16); CARBON DIOXIDE 22.9 mmol/L (21-32); CREATININE 1.8 mg/dL (0.6-1.3); POTASSIUM 3.5 mmol/L (3.5-5.1)
--- NOTE | 2021-02-10 13:29 | NUR ---
DR. ESPARZA APPROVED RD RECOMMENDATIONS FOR [facility] PUREE DIET WITH HONEY THICK LIQUIDS.
--- NOTE | 2021-02-10 13:35 | NUR ---
02/10/21 RD FOLLOW UP COMPLETED PLEASE REFER TO NUTRITION ASSESSMENT UNDER CARE ACTIVITY FOR ESTIMATED NUTRITIONAL NEEDS. 1. RECOMMEND CCHO 60 GM PUREE DIET W/ HONEY THICK LIQUIDS PER TECHNICIAN'S HELPER RECOMMENDATIONS OF CONSISTENCY. 2. RECOMMEND GLUCERNA BID. 3. RD WILL F/U 3-5 DAYS; MODERATE RISK. SHARIFA BARRIOS RD
--- NOTE | 2021-02-10 14:23 | NUR ---
PATIENT IS ON CCHO 60 GRAMS PUREE DIET HONEY THICKENED AND GLUCERNA BID PER FNS RECOMMENDATIONS.
[2021-02-10 16:00] VITALS: BP 131/90
--- NOTE | 2021-02-10 17:15 | NUR ---
IRRIGATED GUILLORY CATHETER WITH 1OOCC OF STERILE WATER PER MD ORDER. URINE WAS PINK WITH PIECES OF BLOOD CLOTS IN GUILLORY. PT TOLERATED PROCEDURE WELL. WILL CONTINUE TO MONITOR.
--- NOTE | 2021-02-10 17:48 | NUR ---
ADMINISTERED NS RUNNING AT 50ML/HR PER MD ORDER. IV INFUSION IS RUNNING WELL. CALL LIGHT IS WITHIN REACH. SAFETY PRECAUTION ARE IN PLACE WILL CONTINUE TO MONITOR.
--- NOTE | 2021-02-10 18:11 | NUR ---
ADMINISTERED SCHEDULED MEDICATIONS. ZOSYN IS RUNNING AT 100ML/HR RUNNING WELL. BG WAS 115MG/DL. NO INSULIN COVERAGE NEEDED. PIPING ENGINEER IS AT BEDSIDE FEEDING PT.CALL LIGHT WITHIN REACH. SAFETY PROTOCOLS IN PLACE. WILL CONTINUE TO MONITOR.
--- NOTE | 2021-02-10 19:25 | NUR ---
ENDORSED PT TO NIGHT NURSE FOR CONTINUITY OF CARE.PT IS STABLE.
--- NOTE | 2021-02-10 19:26 | NUR ---
RECD. PATIENT RESTING ON BED, AWAKE, A/OX1, MENTALLY CHALLENGED. REORIENTED TO HOSPITAL SETTING. RESPIRATION EVEN AND UNLABORED. 02 SATURATION - 98% ON ROOM AIR. NS AT 50 ML/HR INFUSING, RIGHT AC G20. WITH RASHES ON THE LEFT HAND. WITH HEMATURIA NOTED IN THE F/C BAG, WILL IRRIGATE PER MD ORDER. NO APPEARANCE OF PAIN NOTED, FLACC -0.
--- NOTE | 2021-02-10 20:00 | NUR ---
Patient's Plan of Care was discussed and reviewed with PRODUCT PROMOTER SALES PERSON: FELICITAS SORTO.
--- NOTE | 2021-02-10 20:30 | NUR ---
INQUIRED TO DR. ESPARZA IF IT IS OK TO CONTINUE GIVING HEPARIN, PATIENT HAS HEMATURIA, ORDERED TO HOLD HEPARIN.
--- NOTE | 2021-02-10 21:30 | NUR ---
NOTED BLOOD CLOTS IN THE F/C TUBING. IRRIGATED WITH 100 ML OF NS PER MD ORDER. NO NOTED CLOTS IN THE RETURN FLOW.
--- NOTE | 2021-02-10 23:00 | NUR ---
STILL AWAKE IN BED, RAISING BILATERAL LOWER EXTREMITIES UP, NO AGITATION NOTED.
--- NOTE | 2021-02-10 23:27 | NUR ---
ZOSYN GIVEN ORDERED.
[2021-02-11] MEDS: BLOOD GLUCOSE MONITORING 1 DEV DEV FS SCH ×5 (00:02→23:39)
--- NOTE | 2021-02-11 01:30 | NUR ---
STILL AWAKE IN BED, RESPIRATION EVEN AND UNLABORED.
--- NOTE | 2021-02-11 03:30 | NUR ---
QUIET IN BED, NO AGITATION NOTED.
[2021-02-11 04:00] VITALS: BP 133/51
[2021-02-11] MEDS: PIPERACILLIN/TAZOBACTAM 2.25 GM in DEXTROSE 5% 50 ML IV SCH ×3 (05:33→17:31)
--- NOTE | 2021-02-11 05:42 | NUR ---
ZOSYN ADMINISTERED ORDERED
[2021-02-11 05:53] LABS: CARBON DIOXIDE 23.2 mmol/L (21-32)
[2021-02-11 06:08] LABS: BASOPHILS % (AUTO) 0.4 % (0.0-2.0); EOSINOPHILS # (AUTO) 0.1 K/uL (0-0.4); EOSINOPHILS % (AUTO) 1.2 % (0.0-4.0); HEMATOCRIT 36.3 % (36-52); LYMPHOCYTES % (AUTO) 17.5 % (20.5-51.1); MEAN CORPUSCULAR HEMOGLOBIN 33 pg (27-31); MEAN CORPUSCULAR HGB CONC 33 g/dL (33-37); MEAN CORPUSCULAR VOLUME 99.3 fL (80-94); MONOCYTES # (AUTO) 0.5 K/uL (0.8-1.0); MONOCYTES % (AUTO) 4.8 % (1.7-9.3); NEUTROPHILS # (AUTO) 8.5 K/uL (1.8-7.7); NEUTROPHILS % (AUTO) 76.1 % (42.2-75.2); PLATELET COUNT (AUTO) 258 K/uL (140-450); RED BLOOD CELL COUNT(AUTO) 3.65 MIL/uL (4.20-6.10); RED CELL DISTRIBUTION WIDTH 14.5 % (11.6-13.7); WHITE BLOOD COUNT (AUTO) 11.2 K/uL (4.8-10.8)
[2021-02-11 06:13] LABS: ALBUMIN 2.8 g/dL (3.4-5.0); ANION GAP 13.4 (8-16); CREATININE 1.7 mg/dL (0.6-1.3); MAGNESIUM 1.5 mg/dL (1.8-2.4); PHOSPHORUS 2.4 mg/dL (2.5-4.9); POTASSIUM 3.6 mmol/L (3.5-5.1)
[2021-02-11 06:43] LABS: TOTAL BILIRUBIN 0.3 mg/dL (0.0-1.0)
--- NOTE | 2021-02-11 07:25 | NUR ---
ENDORSED TO AM SHIFT NURSE FOR CONTINUITY OF CARE.
--- NOTE | 2021-02-11 07:27 | NUR ---
RECEIVED REPORT FROM NIGHT NURSE. INTRODUCED MYSELF TO PT AND UPDATED WHITE BOARD WITH GOALS. REVIEWED PLAN OF CARE. SAFETY PROTOCOLS ARE IN PLACE. WILL CONTINUE PLAN OF CARE. CALL LIGHT IS WITHIN REACH WILL CONTINUE TO MONITOR.
[2021-02-11 08:00] VITALS: BP 122/69
[2021-02-11] MEDS: PANTOPRAZOLE 40 MG INJ VIAL IVP SCH (08:29)
--- NOTE | 2021-02-11 08:38 | NUR ---
ADMINISTERED SCHEDULED MEDICATIONS PER MD ORDER. SAFETY PRECAUTIONS IN PLACE. CALL LIGHT IS WITHIN REACH WILL CONTINUE TO MONITOR.
--- NOTE | 2021-02-11 11:35 | NUR ---
ASSESSED BLOOD GLUCOSE LEVELS. 138 MG/DL. NO COVERAGE NEEDED. SAFETY PRECAUTIONS IN PLACE. CALL LIGHT IS WITHIN REACH WILL CONTINUE TO MONITOR.
--- NOTE | 2021-02-11 12:08 | NUR ---
administered scheduled medications. infusion is running well.
[2021-02-11 16:00] VITALS: BP 150/87
[2021-02-11] MEDS ORDERED: SODIUM PHOSPHATE 15 MMOLE in NACL 0.9% 250 ML IV ONE (17:15)
[2021-02-11] MEDS ORDERED: MAG SULF 2000 MG/WATER PREMIX 50 ML IV ONE (17:15)
--- NOTE | 2021-02-11 18:18 | NUR ---
administered magnesium sulfate to pt for low mg level of 1.7 per md order.infusion is running well. safety precautions ar ein place. side rails are padded for seizure precaution safety. call light is within reach. will continue to monitor.
--- NOTE | 2021-02-11 18:26 | NUR ---
blood glucose was 111mg/dl. no insulin coverage needed will continue to monitor.
--- NOTE | 2021-02-11 18:28 | NUR ---
DR ESPARZA CAME WITH ORDER TO DC PATIENT BACK TO FACILITY. SPOKE TO ISIDRO FROM [facility] AND SHE SAID SHE WILL CALL THE INDIRECT SALES EXEC AND WILL LET US KNOW. WILL CONTINUE TO MONITOR.
--- NOTE | 2021-02-11 19:05 | NUR ---
RECEIVED A CALL FROM GISELA/RN OF [facility]. [phone]. PER GISELA, SHE NEEDS TO DISCUSS WITH THE WEB MERCHANT AND PCP IF CAN TAKE PATIENT BACK AT THIS TIME. PER GISELA, WILL CALL BACK THE HOSPITAL TOMORROW MORNING. DR. ESPARZA INFORMED.
--- NOTE | 2021-02-11 19:28 | NUR ---
ENDORSED PT TO NIGHT NURSE FOR CONTINUITY OF CARE.
--- NOTE | 2021-02-11 19:30 | NUR ---
RECEIVED REPORT FROM RN DAYSHIFT NURSE AT BEDSIDE FOR CONTINUITY OF CARE, PT IN STABLE CONDITION.
--- NOTE | 2021-02-11 20:00 | NUR ---
PT LYING IN BED AOX1, HE HAS 2 IV SITES ONE AND R HAND AND ONE AON LEFT HAND BOTH 22G. RIGHT HAND RUNNING SODIUM PHOSPHATE AT 42.5. LEFT HAND RUNNING NORMAL SALINE AT 50MLS/HR. GUILLORY CATHETER IN PLACE AND DRAINING YELLOW URINE SMALL AMOUNT OF BLOOD TINGED URINE, BUT URINE IS DRAINING CLEAR YELLOW AT THIS TIME. V/S FOLLOWS: T 97.4 P 103 R 18 B/P 155/77 02 97% ON ROOM AIR. ALL FALLS AND ASPIRATION PRECAUTIONS IN PLACE.
--- NOTE | 2021-02-11 21:00 | NUR ---
HEPARIN SHOT GIVEN SQ, PT UNABLE TO COMPREHEND TEACHING REGARDING MEDICATION. PT TURNED AND REPOSITIONED IN BED. ALL FALLS AND ASPIRATION PRECAUTIONS IN PLACE. IV SITES FLUSHED PATENT AND ALL FLUIDS RUNNING ORDERED.
--- NOTE | 2021-02-11 22:00 | NUR ---
SISTER/POINT OF CONTACT CALLED AND WAS UPDATED REGARDING PT CONDITION.
--- NOTE | 2021-02-11 23:30 | NUR ---
PT WAS REPOSITIONED AND GIVEN A DRINK. GUILLORY CATHETER IN PLACE AND DRAINING YELLOW CLEAR URINE. SODIUM PHOSPHATE 250 BAG COMPLETED. FINGERSTICK TAKEN AND IT WAS 110, NO HUMALOG COVERAGE NEEDED. ZOSYN HUNG AND RUNNING AT 100MLS/HR ORDERED. PT UNABLE TO COMPREHEND TEACHING REGARDING MEDICATION. ALL FALLS AND ASPIRATION PRECAUTIONS IN PLACE.
[2021-02-11] MEDS: NACL 0.9% 1,000 ML IV SCH (23:35)
[2021-02-12] VITALS: BP 152/76
[2021-02-12] MEDS: PIPERACILLIN/TAZOBACTAM 2.25 GM in DEXTROSE 5% 50 ML IV SCH ×3 (00:02→13:05)
--- NOTE | 2021-02-12 04:00 | NUR ---
PT WAS TURNED AND REPOSITIONED IN BED V/S STABLE ALL FALS AND ASPIRATION PRECAUTIONS IN PLACE.
[2021-02-12 06:10] LABS: MAGNESIUM 2.2 mg/dL (1.8-2.4); PHOSPHORUS 3.1 mg/dL (2.5-4.9)
[2021-02-12 06:11] LABS: BASOPHILS # (AUTO) 0.1 K/uL (0.00-0.22); BASOPHILS % (AUTO) 0.6 % (0.0-2.0); EOSINOPHILS # (AUTO) 0.2 K/uL (0-0.4); EOSINOPHILS % (AUTO) 2.6 % (0.0-4.0); HEMATOCRIT 33.5 % (36-52); HEMOGLOBIN 11.4 g/dL (12.0-18.0); LYMPHOCYTES # (AUTO) 2.2 K/uL (2.0-11.5); LYMPHOCYTES % (AUTO) 24.3 % (20.5-51.1); MEAN CORPUSCULAR HEMOGLOBIN 33 pg (27-31); MEAN CORPUSCULAR HGB CONC 34 g/dL (33-37); MEAN CORPUSCULAR VOLUME 98.2 fL (80-94); MONOCYTES # (AUTO) 0.5 K/uL (0.8-1.0); MONOCYTES % (AUTO) 5.6 % (1.7-9.3); NEUTROPHILS # (AUTO) 6.1 K/uL (1.8-7.7); NEUTROPHILS % (AUTO) 66.9 % (42.2-75.2); PLATELET COUNT (AUTO) 247 K/uL (140-450); RED BLOOD CELL COUNT(AUTO) 3.42 MIL/uL (4.20-6.10); RED CELL DISTRIBUTION WIDTH 14.6 % (11.6-13.7); WHITE BLOOD COUNT (AUTO) 9.2 K/uL (4.8-10.8)
[2021-02-12 06:12] LABS: CARBON DIOXIDE 25.4 mmol/L (21-32); CREATININE 1.9 mg/dL (0.6-1.3); POTASSIUM 3.4 mmol/L (3.5-5.1)
[2021-02-12] MEDS: BLOOD GLUCOSE MONITORING 1 DEV DEV FS SCH ×3 (06:27→17:30)
[2021-02-12] MEDS ORDERED: NACL 0.45% 1,000 ML IV SCH (07:40)
[2021-02-12] MEDS ORDERED: POTASSIUM CHLORIDE 20% 40 MEQ/15 ML UDC PO SCH (07:43)
[2021-02-12] MEDS: PANTOPRAZOLE 40 MG INJ VIAL IVP SCH (09:39)
--- NOTE | 2021-02-12 10:54 | NUR ---
DC PLANNING: RECEIVED A CALL FROM [facility] CRANE CHASER SPOKE WITH KAM, UPDATED PT'S CLINICAL. SHE STATED THAT IF PT HAS TO GO WITH GUILLORY CATHETER [facility] CAN NOT ACCEPT PATIENT. CALLED [facility] [phone] SPOKE WITH GISELA DAUGHERTY STATED THEY CAN NOT ACCEPT PATIENT WITH GUILLORY AND IRRIGATION. CALLED PT'S SISTER ED EXPLAINED THAT PT NEEDS TO GO TO SNF AND ED STATED SHE GOT A CALL FROM [facility] KAM AND THE RECOMMENDED FACILITY IS [facility]. SHE REQUESTED THE DR TO CALL HER AND NEEDS TIME TO GO AND VISIT [facility]. I NOTIFIED DR ESPARZA TO CALL PT'S SISTER. CM TO FOLLOW Addendum: 02/12/21 at 1502 by Antonia Wagoner RN DC PLANNING: DR WESLEY SPOKE WITH ED PT'S SISTER EXPLAINED AND ANSWERED ALL QUESTION, SHE VERBALIZED UNDERSTANDING, ON HER WAY TO [facility] TO VISIT. CM TO FOLLOW Addendum: 02/12/21 at 1557 by Antonia Wagoner RN DC PLANNING: RECEIVED A CALL FROM ED STATED SHE VISITED [facility] AND LIKED IT AND OK TO GO TO [facility]. CALLED MM SPOKE WITH SUKUMAR ACCEPTED PATIENT CAN GO TO ROOM 18D. ARRANGED TRANSPORT WITH [employer] ATTENDANT TIME 6PM. [facility] WILL PAY FOR TRANSPORT.
[2021-02-12 16:00] VITALS: BP 137/74
--- NOTE | 2021-02-12 16:46 | NUR ---
REPORT GIVEN TO [facility]ANCES OF [facility].
--- NOTE | 2021-02-12 18:40 | NUR ---
PATIENT WAS PICKED UP BY THE AMBULANCE. PATIENT IN STABLE CONDITION. GUILLORY CATHETER KEPT IN PLACE. DISCHARGE PROTOCOL FOLLOWED.
[2021-02-13 06:08] LABS: LD2 FRACTION 29 % (25-40); LD3 FRACTION 25 % (17-27); LD5 FRACTION 16 % (4-20)
[2021-02-13 07:21] LABS: LD4 FRACTION 14 % (5-13)
[2021-03-07] MEDS ORDERED: LEVO750T51 PO (11:07)
== END 2021-02-12 18:40 | DRG 871 ==
LOC: MED 07:31 → MTU 09:39
PROVIDERS: ADMIT Preventive Medicine Preventive Medicine/Occupational Environmental Medicine; ATTEND Preventive Medicine Preventive Medicine/Occupational Environmental Medicine
DX: A41.9 Sepsis, unspecified organism (principal); J96.01 Acute respiratory failure with hypoxia; N17.0 Acute kidney failure with tubular necrosis; G93.40 Encephalopathy, unspecified; N13.6 Pyonephrosis; E44.1 Mild protein-calorie malnutrition; E03.9 Hypothyroidism, unspecified; E11.22 Type 2 diabetes mellitus with diabetic chronic kidney disease; F03.90 Unspecified dementia, unspecified severity, without behavioral disturbance, psychotic disturbance, mood disturbance, and anxiety; I12.9 Hypertensive chronic kidney disease with stage 1 through stage 4 chronic kidney disease, or unspecified chronic kidney disease; D64.9 Anemia, unspecified; E83.39 Other disorders of phosphorus metabolism; E83.42 Hypomagnesemia; E83.51 Hypocalcemia; E87.5 Hyperkalemia; K21.9 Gastro-esophageal reflux disease without esophagitis; R23.3 Spontaneous ecchymoses; Z20.822 Contact with and (suspected) exposure to COVID-19; R31.0 Gross hematuria; N32.81 Overactive bladder; I67.2 Cerebral atherosclerosis; I45.10 Unspecified right bundle-branch block; G40.909 Epilepsy, unspecified, not intractable, without status epilepticus; E78.5 Hyperlipidemia, unspecified; K59.00 Constipation, unspecified; R33.8 Other retention of urine; B96.5 Pseudomonas (aeruginosa) (mallei) (pseudomallei) as the cause of diseases classified elsewhere; E88.09 Other disorders of plasma-protein metabolism, not elsewhere classified; E11.65 Type 2 diabetes mellitus with hyperglycemia; N18.9 Chronic kidney disease, unspecified; Q90.9 Down syndrome, unspecified; Z88.8 Allergy status to other drugs, medicaments and biological substances; Z79.899 Other long term (current) drug therapy; Z68.25 Body mass index [BMI] 25.0-25.9, adult
CPT/HCPCS: 36415; 36600; 62270; 70450; 71045; 76770; 80048; 80053; 80202; 80305; 81001; 82330; 82803; 82948; 83010; 83605; 83625; 83690; 83735; 83880; 84100; 84300; 84443; 84484; 85025; 85379; 85384; 85610; 85651; 85730; 86140; 87040; 87081; 87086; 92610; 92700; 93005; 96365; 96367; 96368; 96375; 99291; C9113; G0482; J0290; J0696; J1644; J1815; J2060; J2310; J2543; J3370; J3475; J7030; J7060

== ENCOUNTER 2021-05-05 12:31 | Inpatient (IN) | payer OTHER, MEDICAID, SELFPAY ==
[~2021-05-05] VITALS: Ht 154.9 cm; Wt 51.3 kg
[~2021-05-05 12:31] MED LIST: DEXT50SO52 IV; DIT5 PO; DONE10TA10 PO; FER300L GT/PO; LEVO750T51 PO; MAGN400S60 PO; MELA3TAB21 PO; METF500T PO; METO-485 PO; OMEP20EC11 PO; PIPE50SO5 IV; QUET25TA46 PO; SIMV-30 PO; SYN.05 PO; [UNRECOGNIZED DRUG - CODE] IV
[2021-05-05 12:35] VITALS: BP 103/63
--- NOTE | 2021-05-05 12:35 | NUR ---
BIBA TO BED 8
--- NOTE | 2021-05-05 13:30 | NUR ---
XRAY AT BEDSIDE,
--- NOTE | 2021-05-05 14:10 | NUR ---
MOVED TO ER BED 2
--- NOTE | 2021-05-05 14:20 | NUR ---
60 Y/O MALE DAPHNE FROM [facility] C/O ALTERED MENTAL STATUS X5 DAYS. PER CAREGIVER, PT HAS BEEN MORE LETHARGIC AND WEAK AND STATED THAT SPO2 DROPPED TO 90% TODAY. PT IS NONVERBAL. PT HAS G-TUBE AND GUILLORY. CAREGIVER ALSO REPORTS PRESENCE OF COUGH, PT IS NOT COVID VACCINATED. GCS 9, EVEN AND UNLABORED RESPIRATIONS. 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 PMH: DOWN SYNDROME, GERD, DEMENTIA, ALZHEIMERS, DM, HTN, HEP B, SEIZURES, ANEMIA, ARTHRITIS. ALLERGIES:KENYON INHIBITORS
--- NOTE | 2021-05-05 14:28 | NUR ---
DR TERRELL AT BEDSIDE EVALUATING PT
[2021-05-05 14:35] LABS: PROTHROMBIN TIME 10.5 secs (10.8-13.4)
[2021-05-05 14:37] LABS: BASOPHILS % (AUTO) 0.4 % (0.0-2.0); EOSINOPHILS # (AUTO) 0.4 K/uL (0-0.4); EOSINOPHILS % (AUTO) 5.7 % (0.0-4.0); HEMATOCRIT 27.6 % (36-52); LYMPHOCYTES % (AUTO) 27.7 % (20.5-51.1); MEAN CORPUSCULAR HEMOGLOBIN 32 pg (27-31); MEAN CORPUSCULAR HGB CONC 33 g/dL (33-37); MEAN CORPUSCULAR VOLUME 98.2 fL (80-94); MONOCYTES # (AUTO) 0.4 K/uL (0.8-1.0); MONOCYTES % (AUTO) 5.4 % (1.7-9.3); NEUTROPHILS # (AUTO) 4.5 K/uL (1.8-7.7); NEUTROPHILS % (AUTO) 60.8 % (42.2-75.2); PLATELET COUNT (AUTO) 330 K/uL (140-450); RED BLOOD CELL COUNT(AUTO) 2.81 MIL/uL (4.20-6.10); RED CELL DISTRIBUTION WIDTH 19.3 % (11.6-13.7); WHITE BLOOD COUNT (AUTO) 7.4 K/uL (4.8-10.8)
[2021-05-05 14:41] LABS: ALBUMIN 2.5 g/dL (3.4-5.0); ANION GAP 12.3 (8-16); CARBON DIOXIDE 28.9 mmol/L (21-32); CREATININE 2.4 mg/dL (0.6-1.3); POTASSIUM 5.2 mmol/L (3.5-5.1); TOTAL BILIRUBIN 0.2 mg/dL (0.0-1.0)
--- NOTE | 2021-05-05 15:09 | NUR ---
COVID IAN, COVID NOVEL, RSV, AND INFLUENZA SWABS COLLECTED AND HANDED TO WINDMILL TECHNICIAN
--- NOTE | 2021-05-05 15:35 | NUR ---
#16 FAROESE GUILLORY CATHETER INSERTED USING STERILE TECHNIQUE. RETURN OF 10ML OF CLEAR YELLOW URINE COLLECTED. PT TOLERATED WELL.
[2021-05-05] MEDS ORDERED: NACL 0.9% 500 ML IV ONE (15:55)
[2021-05-05] MEDS ORDERED: HALOPERIDOL IM 5 MG/ML VIAL IM ONE (16:00)
[2021-05-05 16:35] LABS: APPEARANCE,URINE HAZY (CLEAR); BILIRUBIN,URINE NEGATIVE (NEGATIVE); BLOOD, URINE NEGATIVE (NEGATIVE); COLOR,URINE YELLOW (YELLOW); LEUKOCYTE ESTERASE ,URINE 1+ (NEGATIVE); NITRITE, URINE NEGATIVE (NEGATIVE); UGLUCOSE NEGATIVE (NEGATIVE)
--- NOTE | 2021-05-05 16:50 | NUR ---
PT PULLED OUT IV. 20G IV INSERTED TO R AC, CO-BAND APPLIED TO PROTECT IV.
[2021-05-05] MEDS ORDERED: MAGNESIUM HYDROXIDE 2400 MG/30 ML UDC PO SCH (17:15)
[2021-05-05] MEDS ORDERED: MELATONIN 3 MG TAB PO PRN (17:15)
[2021-05-05] MEDS ORDERED: HYDROcodone/APAP 5/325 MG 1 TAB TAB GT PRN (17:25)
[2021-05-05] MEDS ORDERED: ALBUTEROL 0.083% 2.5 MG/3 ML NEBU INH PRN (17:25)
[2021-05-05] MEDS ORDERED: ONDANSETRON 4 MG/2 ML VIAL IVP PRN (17:25)
[2021-05-05] MEDS ORDERED: ACETAMINOPHEN 325 MG TAB GT PRN (17:25)
[2021-05-05 17:32] LABS: RBC,URINE NONE SEEN /HPF (0-5); WBC,URINE 0-5 /HPF (0-5)
--- NOTE | 2021-05-05 17:51 | NUR ---
PT TAKEN TO CT VIA ARMOND
--- NOTE | 2021-05-05 18:06 | NUR ---
PT BACK FROM CT AND CONNECTED TO MONITOR
[2021-05-05 18:15] LABS: RSV NEGATIVE (NEGATIVE)
[2021-05-05] MEDS: DEXT 5% / NACL 0.45% 1,000 ML IV SCH (18:55)
--- NOTE | 2021-05-05 19:20 | NUR ---
Received report from Latrice DAUGHERTY for continuity of care
--- NOTE | 2021-05-05 19:20 | NUR ---
REPORT GIVEN TO BARB RN, TRANSFER OF CARE AT THIS TIME
--- NOTE | 2021-05-05 19:25 | NUR ---
Patient appears to be resting comfortably in bed- low fowlers with eyes open. Vital Signs within normal limits. Respirations even and unlabored. Fluids running through the IV. Patient with cough and phlegm. Safety measures are in place, attached to monitors, will continue to monitor patient.
--- NOTE | 2021-05-05 20:10 | NUR ---
Patient will be admitted to care of Shane Nuñez MD. Admited to Med/Surg. Will go to room 117a. Belongings list completed. Report to FABBY DAUGHERTY.
--- NOTE | 2021-05-05 20:32 | NUR ---
patient to floor
[2021-05-05 20:35] VITALS: BP 118/65
--- NOTE | 2021-05-05 20:40 | NUR ---
ADMITTED THE PATIENT FROM ER VIA GURNEY. PATIENT AWAKE, ALERT, NON VERBAL HAS HISTORY OF DOWN SYNDROME. NO SIGN AND SYMPTOMS OF DISTRESS NOTED ON ARRIVAL TO THE FLOOR. VSS, AFEBRILE SATING 98% ON 3L/NC. PT HAS G TUBE CLAMPED. NO RESIDUAL NOTED. CLEANED THE G TUBE SITE WITH BETADINE AND DRESSING PLACED. IVF INFUSING ORDERED. BLOOD SUGAR CHECKED ON ARRIVAL TO THE FLOOR AND ITS 84. STARTED THE PATIENT ON G TUBE FEEDING ORDERED. GLUCERNA 1.2 @ 80 CC/HR PLUS WATER FLUSH OF 175 CC Q6 GR ORDERED. SEIZURE PRECAUTION IMPLEMENTED. BED IN LOW POSITION, BED ALARM AND BRAKES ON. CALL LIGHT WITHIN REACH. WILL CONTINUE POC AND OBSERVATION.
[2021-05-05] MEDS ORDERED: PIPERACILLIN/TAZOBACTAM 3.375 GM VIAL IV ONE (20:52)
[2021-05-05] MEDS ORDERED: metFORMIN 500 MG TAB GT SCH (21:00)
[2021-05-05] MEDS: PIPERACILLIN/TAZOBACTAM 3.375 GM in DEXTROSE 5% 50 ML IV SCH (21:15)
[2021-05-05] MEDS: VALPROATE SODIUM 500 MG/5 ML VIAL IV SCH (21:15)
[2021-05-05] MEDS: DONEPEZIL 10 MG TAB GT SCH (21:15)
[2021-05-05] MEDS: SIMVASTATIN 20 MG TAB GT SCH (21:15)
[2021-05-05] MEDS: FERROUS SULFATE 300 MG/5 ML UDC GT SCH (21:15)
[2021-05-05] MEDS: QUEtiapine FUMARATE 25 MG TAB PO SCH (21:16)
[2021-05-05] MEDS: METOCLOPRAMIDE 10 MG TAB PO SCH (21:16)
[2021-05-05] MEDS: OXYBUTYNIN 5 MG TAB PO SCH (21:16)
--- NOTE | 2021-05-05 22:00 | NUR ---
DUE MEDS GIVEN THROUGH THE G TUBE ORDERED. NO ADVERSE DRUG REACTION NOTED. WILL CONTINUE TO OBSERVE THE PATIENT.
--- NOTE | 2021-05-06 02:11 | NUR ---
PATIENT ASLEEP. VISIBLE CHEST RISE AND FALL NOTED. SAFETY MEASURES IN PLACED. CALL LIGHT WITHIN REACH.
[2021-05-06] MEDS: DEXT 5% / NACL 0.45% 1,000 ML IV SCH (03:25)
[2021-05-06 04:00] VITALS: BP 94/48
[2021-05-06] MEDS ORDERED: PIPERACILLIN/TAZOBACTAM 3.375 GM VIAL IV ONE (04:37)
[2021-05-06] MEDS: PIPERACILLIN/TAZOBACTAM 3.375 GM in DEXTROSE 5% 50 ML IV SCH (04:57)
[2021-05-06] MEDS: METOCLOPRAMIDE 10 MG TAB PO SCH ×3 (05:29→22:00)
[2021-05-06] MEDS: PANTOPRAZOLE 40 MG TABEC PO SCH (05:29)
[2021-05-06] MEDS: LEVOTHYROXINE 0.05 MG TAB PO SCH (05:29)
[2021-05-06] MEDS: FERROUS SULFATE 300 MG/5 ML UDC GT SCH ×3 (05:29→22:00)
[2021-05-06] MEDS: VALPROATE SODIUM 500 MG/5 ML VIAL IV SCH (05:30)
--- NOTE | 2021-05-06 05:53 | NUR ---
CHECKED PT BLOOD SUGAR, ITS 109.
[2021-05-06] MEDS ORDERED: NON-FORMULARY ITEM (Omeprazole* (Prilosec*) 20 MG) PO SCH (06:00)
--- NOTE | 2021-05-06 06:31 | NUR ---
PATIENT STABLE. NO ACUTE EVENTS THROUGHOUT THE NIGHT. PT NOT IN ANY DISTRESS AND NO COMPLAIN AT THIS TIME. ALL NEEDS ATTENDED. CALL LIGHT WITHIN REACH. WILL ENDORSE THE PATIENT TO THE ONCOMING RN FOR CONTINUITY OF CARE.
--- NOTE | 2021-05-06 07:20 | NUR ---
RECEIVED BEDSIDE REPORT FROM NIGHT NURSE. PT. IS SLEEPING. BREATHING IS UNLABORED WITH O2 ON 3L. SKIN IS WARM AND DRY AND INTACT. WITH IV INFUSING ON RIGHT AC 20 GAUGE.WITH GUILLORY CATHETER. WITH GTUBE IN PLACE INFUSING FEEDING ORDERED. CALL LIGHT WITHIN REACH. ALL SAFETY MEASURES IN PLACE. PT. IS STABLE. WILL CONTINUE TO MONITOR.
--- NOTE | 2021-05-06 07:28 | NUR ---
ENDORSED PT TO DAY RN FOR CONTINUITY OF CARE. PT STABLE. SIGNING OFF.
[2021-05-06 07:38] LABS: BASOPHILS # (AUTO) 0.1 K/uL (0.00-0.22); BASOPHILS % (AUTO) 1.7 % (0.0-2.0); EOSINOPHILS # (AUTO) 0.4 K/uL (0-0.4); EOSINOPHILS % (AUTO) 8.2 % (0.0-4.0); HEMATOCRIT 26.4 % (36-52); HEMOGLOBIN 8.8 g/dL (12.0-18.0); LYMPHOCYTES # (AUTO) 1.7 K/uL (2.0-11.5); MEAN CORPUSCULAR HEMOGLOBIN 33 pg (27-31); MEAN CORPUSCULAR HGB CONC 33 g/dL (33-37); MEAN CORPUSCULAR VOLUME 99.4 fL (80-94); MONOCYTES # (AUTO) 0.3 K/uL (0.8-1.0); MONOCYTES % (AUTO) 7.5 % (1.7-9.3); NEUTROPHILS % (AUTO) 44.6 % (42.2-75.2); RED BLOOD CELL COUNT(AUTO) 2.66 MIL/uL (4.20-6.10); RED CELL DISTRIBUTION WIDTH 19.3 % (11.6-13.7); WHITE BLOOD COUNT (AUTO) 4.5 K/uL (4.8-10.8)
[2021-05-06 08:00] VITALS: BP 98/50
[2021-05-06 08:01] LABS: PLATELET COUNT (AUTO) 307 K/uL (140-450)
[2021-05-06 08:21] LABS: ALBUMIN 2.3 g/dL (3.4-5.0); ANION GAP 14.6 (8-16); CARBON DIOXIDE 25.6 mmol/L (21-32); CREATININE 2.4 mg/dL (0.6-1.3); MAGNESIUM 2.8 mg/dL (1.8-2.4); PHOSPHORUS 3.5 mg/dL (2.5-4.9); POTASSIUM 5.2 mmol/L (3.5-5.1); TOTAL BILIRUBIN 0.2 mg/dL (0.0-1.0)
[2021-05-06] MEDS: QUEtiapine FUMARATE 25 MG TAB PO SCH ×2 (09:09→22:02)
--- NOTE | 2021-05-06 09:09 | NUR ---
PT IS SLEEPING. BREATHING IS UNLABORED. SCHEDULE MEDICATION GIVEN AND PT TOLERATED WELL. PROVIDED COMFORT AND SAFETY MEASURES IN PLACE.
[2021-05-06] MEDS: DEXT 5% /NACL 0.9% 1,000 ML IV SCH (09:15)
--- NOTE | 2021-05-06 10:25 | NUR ---
PATIENT HAS BEEN SCREENED AND CATEGORIZED HIGH NUTRITION RISK. PATIENT WILL BE SEEN WITHIN 1-2 DAYS OF ADMISSION. 05/06/[address]
--- NOTE | 2021-05-06 11:10 | NUR ---
PT HAS A BOWEL MOVEMENT IT IS DARK AND LIQUID IN CONSISTENCY AND MODERATE IN AMOUNT. PROVIDED AM CARE TO PT AND APPLY NEW DIAPER. PT WAS CLEANED AND REPOSITIONED. PT IS STABLE. BREATHING IS UNLABORED. CALL LIGHT WITHIN REACH. ALL SAFETY MEASURES IN PLACE. WILL CONTINUE TO MONITOR PT.
[2021-05-06] MEDS: MIDODRINE 5 MG TAB PO SCH ×3 (12:44→18:51)
[2021-05-06] MEDS: PIPERACILLIN/TAZOBACTAM 2.25 GM in DEXTROSE 5% 50 ML IV SCH ×2 (12:45→23:13)
--- NOTE | 2021-05-06 12:45 | NUR ---
PT IS STABLE. WITH O2 AT 3L VIA NASAL CANNULA. G-TUBE INFUSING WELL. SCHEDULE MEDICATIONS ADMINISTERED ORDERED AND PT TOLERATED WELL. ALL SAFETY MEASURE IN PLACE.
[2021-05-06] MEDS: VALPROATE SODIUM 500 MG in NACL 0.9% 100 ML IV SCH (13:26)
--- NOTE | 2021-05-06 14:22 | NUR ---
05/06/21 RD INITIAL ASSESSMENT COMPLETED PLEASE REFER TO NUTRITION ASSESSMENT UNDER CARE ACTIVITY FOR ESTIMATED NUTRITIONAL NEEDS. 1.CONTINUE TF GLUCERNA 1.2 @ 80 ML/HR FOR 16 HOURS PERIOD 2.CONTINUE WATER FLUSH 175 ML Q6H 3.RD TO FOLLOW-UP 2-3 DAYS, HIGH RISK REVIEWED BY RADHA THIBODEAUX RD
--- NOTE | 2021-05-06 15:20 | NUR ---
PT IS SLEEPING. BREATHING IS UNLABORED. SYMMETRICAL RISE AND FALL OF CHEST WITH O2 SAT @ 98%. CALL LIGHT WITHIN REACH. ALL SAFETY MEASURES IN PLACE. WILL CONTINUE TO MONITOR PT.
[2021-05-06 16:00] VITALS: BP 97/50
--- NOTE | 2021-05-06 16:44 | NUR ---
ENDORSED PT TO CHLOÉ DAUGHERTY FOR CONTINUITY OF CARE. PT IS STABLE AT THIS TIME. O2 SAT IS 99% ON 3L O2 NC. PLAN OF CARE DISCUSSED.
--- NOTE | 2021-05-06 17:40 | NUR ---
PT CONDITION IS STABLE. GT FEED IN PLACE IVF RUNNING PER MD ORDER. WILL CONTINUE TO MONITOR.
--- NOTE | 2021-05-06 19:25 | NUR ---
GAVE CHANGE OF SHIFT REPORT TO NIGHT NURSE AT BEDSIDE FOR CONTINUITY OF CARE. DISCUSSED POC. PT STABLE.
--- NOTE | 2021-05-06 19:26 | NUR ---
RECD. RESTING IN BED, AWAKE, APHASIC, MENTALLY CHALLENGED. RESPIRATION EVEN AND UNLABORED. ON AT 3 LITERS VIA N/C, 02 SATURATION 92%. IV OF NS AT TKO INFUSING, RIGHT FOREARM G22. GT FEEDING OF GLUCERNA 1.2 INFUSING AT 80 ML/HR, GT SITE DRY AND CLEAN COVERED WITH GAUZE DRESSING. SAFETY MEASURES ENFORCED. SIDE RAILS WITH PADS. BED IN THE LOWEST POSITION, SIDE RAILS UP. HOB ELEVATED 35 DEGREES. NO APPEARANCE OF PAIN NOTED, FLACC -0. Addendum: 05/06/21 at 2330 by Felicitas ORTEZN CORRECTION: THIS CHARTING IS DONE BY FELICITAS SORTO, SAMUEL BAUTISTA.
[2021-05-06] MEDS: OXYBUTYNIN 5 MG TAB PO SCH (22:00)
--- NOTE | 2021-05-06 22:00 | NUR ---
RESIDUAL 20 ML. ADMINISTERED SCHEDULED MEDICATIONS VIA GT. TOLERATED WELL. Addendum: 05/06/21 at 2331 by Felicitas Sorto LVN CORRECTION: THIS CHARTING ENTRY IS DONE BY FELICITAS SORTO. NOT BY GAGE BAUTISAT.
[2021-05-06] MEDS: SIMVASTATIN 20 MG TAB GT SCH (22:01)
[2021-05-06] MEDS: DONEPEZIL 10 MG TAB GT SCH (22:02)
--- NOTE | 2021-05-06 22:30 | NUR ---
HAD LARGE LOOSE BM, GREENISH BLACK IN COLOR, CLEANSED AND REPOSITIONED WITH PILLOWS FOR COMFORT. PATIENT DESATURATES TO 64 - 77%. PROVIDE WARM BLANKET. INFORMED RT ON DUTY, REQUESTED TO GIVE BREATHING TREATMENT. Addendum: 05/06/21 at 2332 by Felicitas Sorto LVN CORRECTION: THIS CHARTING ENTRY IS DONE BY FELICITAS SORTO, SAMUEL BAUTISTA.
--- NOTE | 2021-05-06 23:13 | NUR ---
PATIENT IS RESTING COMFORTABLY IN BED. NO SOB NOTED. IVPB ZOSYN INFUSED BY WILLOW ALMONTE.
--- NOTE | 2021-05-06 23:20 | NUR ---
RT CAME, PUT HUMIDIFIER. 02 SAT - 97 TO 100% ON 3 LITERS N/C. Addendum: 05/06/21 at 2333 by Felicitas Sorto LVN CORRECTION: THIS CHARTING ENTRY IS DONE BY FELICITAS SORTO, SAMUEL BAUTISTA.
--- NOTE | 2021-05-07 | NUR ---
CHECKED PATIENT, REMOVING GOWN, 0FF 02 CANNULA AND TRYING TO PULLED OUT G TUBE FEEING. PUT ON A BINDER AND TOWEL ON TOP TO PREVEN PATIENT FROM PULLING OUT G - TUBE. PUT BACK 02 CANNULA IN PLACED AND GOWN.
[2021-05-07] MEDS: VALPROATE SODIUM 500 MG in NACL 0.9% 100 ML IV SCH ×4 (00:17→23:41)
[2021-05-07] MEDS: DEXT 5% /NACL 0.9% 1,000 ML IV SCH (01:50)
--- NOTE | 2021-05-07 02:46 | NUR ---
UNABLE TO SLEEP, MEDICATED WITH MELATONIN PER MD ORDER.
--- NOTE | 2021-05-07 03:46 | NUR ---
SLEEPING COMFORTABLY IN BED. NO SOB NOTED.
[2021-05-07 04:00] VITALS: BP 98/56
[2021-05-07] MEDS: PANTOPRAZOLE 40 MG TABEC PO SCH (05:22)
[2021-05-07] MEDS: FERROUS SULFATE 300 MG/5 ML UDC GT SCH ×3 (05:22→23:37)
[2021-05-07] MEDS: LEVOTHYROXINE 0.05 MG TAB PO SCH (05:23)
[2021-05-07] MEDS: METOCLOPRAMIDE 10 MG TAB PO SCH ×3 (05:23→23:38)
--- NOTE | 2021-05-07 06:00 | NUR ---
RESIDUAL CHECKED - 10ML, TOLERATING GT FEEDING WELL. NEW GT FEEDING STARTED.
[2021-05-07] MEDS: PIPERACILLIN/TAZOBACTAM 2.25 GM in DEXTROSE 5% 50 ML IV SCH ×3 (06:13→21:00)
--- NOTE | 2021-05-07 06:13 | NUR ---
SCHEDULED ZOSYN IVPB ADMINISTERED BY CHARGE NURSE GAGE.
[2021-05-07] MEDS: MIDODRINE 5 MG TAB PO SCH ×3 (07:47→23:39)
[2021-05-07] MEDS ORDERED: SODIUM POLYSTYRENE 15 GM/60 ML UDBTL GT SCH (09:00)
[2021-05-07] MEDS: QUEtiapine FUMARATE 25 MG TAB PO SCH ×2 (10:07→23:38)
--- NOTE | 2021-05-07 12:07 | NUR ---
DC PLANNING: LANCE SPOKE WITH FRANCES JUAN AT [facility]. THE PATIENT HAS RESIDED THERE FOR ABOUT 10 YEARS AND IS RECENTLY WC BOUND. HE WAS ABLE TO AMBULATE PRIOR TO CURRENT EVENT. THE PATIENT HAS A PEG, AND IS TOTAL CARE PER DRAKE. SPECIAL AGENT IN CHARGE IS LINDA, , FACILITY RN IS [facility], . THE PATIENT IS CURRENTLY ON O2 NC 3L AND ZOSYN IV, 'S FINAL RESULTS ARE PENDING. THE DC PLAN IS FOR THE PATIENT TO RETURN TO [facility], LANCE WILL FOLLOW FOR NEEDS. Addendum: 05/07/21 at 1249 by Lynn Cummings CM DC PLANNING: LANCE SPOKE WITH THE FACILITY RN [facility], CONFIRMED THAT THE PATIENT IS WITH [facility]. KAM SIMON IS HIS WORKER, . THE HOME HE CAME FROM STATES THAT THEY CANNOT ACCEPT HIM BACK AND WANT HIM PLACED IN A SNF. HIS SISTER ED WANTS HIM REFERRED TO [facility], CM MADE DR. ESPARZA AWARE. LANCE WILL SEND INFORMATION TO [facility] AND WILL CONTINUE TO FOLLOW FOR NEEDS. Addendum: 05/08/21 at 1357 by Lynn Cummings CM DC PLANNING: LANCE CONFIRMED THAT THE PATIENT IS ACCEPTED TO [place], DC ORDER IN PLACE. ASSIGNED ROOM 18A, DR. RICHARD COOPER HIS PCP TO FOLLOW. [facility] IS ARRANGING TRANSPORT, PATIENT WILL BE PICKED UP AT 1530. LANCE CALLED THE PATIENTS SISTER ED TO NOTIFY HER OF THE DISCHARGE, ALL QUESTIONS AND CONCERNS ANSWERED AND ADDRESSED. DISCHARGE AND ANTHROPOLOGY LECTURER TIME ENDORSED TO THE PATIENTS WILLOW VILLATORO CM WILL FOLLOW FOR NEEDS.
[2021-05-07 16:00] VITALS: BP 93/48
[2021-05-07] MEDS: OXYBUTYNIN 5 MG TAB PO SCH (21:00)
--- NOTE | 2021-05-07 21:00 | NUR ---
PATIENT RECEIVED IN ROOM BED. AWAKE, ALERT, NON VERBAL HAS HISTORY OF DOWN SYNDROME. NO SIGN AND SYMPTOMS. VSS, AFEBRILE SATING 98% ON 3L/NC. PT HAS G TUBE CLAMPED. NO RESIDUAL NOTED. G TUBE SITE INTACT WITH DRESSING PLACED. IVF INFUSING ORDERED. BLOOD SUGAR CHECKED ON ARRIVAL TO THE FLOOR AND ITS 84. STARTED THE PATIENT ON G TUBE FEEDING ORDERED. GLUCERNA 1.2 @ 80 CC/HR PLUS WATER FLUSH OF 175 CC Q6 GR ORDERED. SEIZURE PRECAUTION IMPLEMENTED. BED IN LOW POSITION, BED ALARM AND BRAKES ON. CALL LIGHT WITHIN REACH. WILL CONTINUE POC AND OBSERVATION. NO ACUTE DISTRESS NOTED. VSS. MAXIMAL CARE RENDERED. NO ACUTE DISTRESS NOTED.
[2021-05-07] MEDS: DONEPEZIL 10 MG TAB GT SCH (23:38)
[2021-05-07] MEDS: SIMVASTATIN 20 MG TAB GT SCH (23:38)
[2021-05-08] VITALS: BP 106/60
[2021-05-08] MEDS: PIPERACILLIN/TAZOBACTAM 2.25 GM in DEXTROSE 5% 50 ML IV SCH (05:15)
[2021-05-08] MEDS: VALPROATE SODIUM 500 MG in NACL 0.9% 100 ML IV SCH (05:15)
[2021-05-08] MEDS: METOCLOPRAMIDE 10 MG TAB PO SCH ×2 (05:17→13:17)
[2021-05-08] MEDS: PANTOPRAZOLE 40 MG TABEC PO SCH (05:18)
[2021-05-08] MEDS: FERROUS SULFATE 300 MG/5 ML UDC GT SCH ×2 (05:21→13:16)
[2021-05-08] MEDS: LEVOTHYROXINE 0.05 MG TAB PO SCH (05:22)
[2021-05-08 06:48] LABS: BASOPHILS # (AUTO) 0.1 K/uL (0.00-0.22); EOSINOPHILS # (AUTO) 0.4 K/uL (0-0.4); HEMOGLOBIN 9.2 g/dL (12.0-18.0); LYMPHOCYTES # (AUTO) 1.4 K/uL (2.0-11.5); LYMPHOCYTES % (AUTO) 33.8 % (20.5-51.1); MEAN CORPUSCULAR HEMOGLOBIN 33 pg (27-31); MEAN CORPUSCULAR HGB CONC 33 g/dL (33-37); MEAN CORPUSCULAR VOLUME 100.8 fL (80-94); MONOCYTES # (AUTO) 0.3 K/uL (0.8-1.0); MONOCYTES % (AUTO) 6.6 % (1.7-9.3); NEUTROPHILS # (AUTO) 2.1 K/uL (1.8-7.7); NEUTROPHILS % (AUTO) 48.6 % (42.2-75.2); PLATELET COUNT (AUTO) 286 K/uL (140-450); RED BLOOD CELL COUNT(AUTO) 2.78 MIL/uL (4.20-6.10); RED CELL DISTRIBUTION WIDTH 19.3 % (11.6-13.7); WHITE BLOOD COUNT (AUTO) 4.2 K/uL (4.8-10.8)
[2021-05-08] MEDS: MIDODRINE 5 MG TAB PO SCH ×2 (07:03→13:17)
[2021-05-08 07:22] LABS: ANION GAP 10.4 (8-16); CARBON DIOXIDE 28.5 mmol/L (21-32); MAGNESIUM 2.6 mg/dL (1.8-2.4); POTASSIUM 4.9 mmol/L (3.5-5.1); TOTAL BILIRUBIN 0.1 mg/dL (0.0-1.0)
--- NOTE | 2021-05-08 07:30 | NUR ---
RECEIVED PATIENT FROM PLASTIC PROCESS TECHNICIAN RN FOR CONTINUITY OF CARE. PATIENT IS RESTING IN BED. NO S/S OF DISTRESS. RESPIRATIONS ARE EVEN AND UNLABORED. ALL SAFETY PRECAUTIONS IN PLACE.
[2021-05-08 08:00] VITALS: BP 109/56
[2021-05-08] MEDS: QUEtiapine FUMARATE 25 MG TAB PO SCH (09:03)
--- NOTE | 2021-05-08 09:05 | NUR ---
ADMINISTERED SCHEDULED MEDICATIONS. PATIENT IS AWAKE WITH NO S/S OF DISTRESS. RESPIRATIONS ARE EVEN AND UNLABORED WITH NASAL CANULA AT 2L. G TUBE SITE IS CLEAN AND DRY WITH NO RESIDUAL NOTED. IV IS A 20G AT THE RIGHT AC. IV IS DRY, PATENT AND INTACT.IVF ARE FUSING WELL. ALL SAFETY PRECAUTIONS IN PLACE. WILL CONTINUE TO MONITOR.
--- NOTE | 2021-05-08 11:10 | NUR ---
PATIENT IS RESTING IN BED. NO S/S OF DISTRESS. RESPIRATIONS EVEN AND UNLABORED. ALL SAFETY PRECAUTIONS IN PLACE.
[2021-05-08] MEDS ORDERED: VALP-22 GT (13:10)
--- NOTE | 2021-05-08 13:25 | NUR ---
ADMINISTERED SCHEDULED MEDICATIONS. NO RESIDUAL NOTED FROM GTUBE. PATIENT DOES NOT SHOW ANY S/S OF DISTRESS. ALL SAFETY PRECAUTIONS IN PLACE.
--- NOTE | 2021-05-08 14:26 | NUR ---
RECEIVED DC ORDER FROM DR ESPARZA. GAVE REPORT TO ELIESER AT [facility] [phone].
[2021-05-08 16:00] VITALS: BP 98/52
--- NOTE | 2021-05-08 16:20 | NUR ---
PATIENT DISCHARGED FROM UNIT. IV REMOVED; CATH INTACT. PATIENT IS STABLE.
[2021-05-08] MEDS ORDERED: VALPROIC ACID 250 MG/5 ML UDC GT SCH (17:00)
== END 2021-05-08 16:18 | DRG 871 ==
LOC: MED 12:31 → MTU 17:32
PROVIDERS: ADMIT Preventive Medicine Preventive Medicine/Occupational Environmental Medicine; ATTEND Preventive Medicine Preventive Medicine/Occupational Environmental Medicine
DX: A41.9 Sepsis, unspecified organism (principal); J69.0 Pneumonitis due to inhalation of food and vomit; J96.00 Acute respiratory failure, unspecified whether with hypoxia or hypercapnia; N17.9 Acute kidney failure, unspecified; B19.10 Unspecified viral hepatitis B without hepatic coma; I13.0 Hypertensive heart and chronic kidney disease with heart failure and stage 1 through stage 4 chronic kidney disease, or unspecified chronic kidney disease; D72.819 Decreased white blood cell count, unspecified; D64.9 Anemia, unspecified; E78.5 Hyperlipidemia, unspecified; E03.9 Hypothyroidism, unspecified; G40.909 Epilepsy, unspecified, not intractable, without status epilepticus; F79 Unspecified intellectual disabilities; G30.9 Alzheimer's disease, unspecified; F02.80 Dementia in other diseases classified elsewhere, unspecified severity, without behavioral disturbance, psychotic disturbance, mood disturbance, and anxiety; E88.09 Other disorders of plasma-protein metabolism, not elsewhere classified; E87.5 Hyperkalemia; E83.52 Hypercalcemia; E11.22 Type 2 diabetes mellitus with diabetic chronic kidney disease; M19.90 Unspecified osteoarthritis, unspecified site; I45.10 Unspecified right bundle-branch block; R13.10 Dysphagia, unspecified; E83.41 Hypermagnesemia; I50.9 Heart failure, unspecified; E83.51 Hypocalcemia; K21.9 Gastro-esophageal reflux disease without esophagitis; N18.9 Chronic kidney disease, unspecified; Z20.822 Contact with and (suspected) exposure to COVID-19; Q90.9 Down syndrome, unspecified; Z88.8 Allergy status to other drugs, medicaments and biological substances; Z79.899 Other long term (current) drug therapy
CPT/HCPCS: 36415; 36600; 51702; 70450; 71045; 80053; 81001; 82550; 82803; 83605; 83735; 83880; 84100; 84484; 85025; 85610; 85651; 85730; 86140; 87040; 87081; 87086; 87420; 87804; 93005; 96372; 99285; J1630; J2543; J3490; J7060; J8597; Q0092; U0003